=== PATIENT | male | born 1950 | race Caucasian/White ===

== ENCOUNTER 2017-10-25 14:06 | Emergency (ER) | payer OTHER ==
[2017-10-25] MEDS ORDERED: DIPH,PERTUSS(ACELL),TET VAC/PF 0.5 ML DISP.SYRIN IM ONE (14:43)
--- NOTE | 2017-10-25 14:44 | ED Physician Documentation ---
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 Pt does not know how long the tick might have been attached, since he works in the same environment daily. Pt removed the tick. The site is itchy (which is how it came to his attention). Pt has had no symptoms apart for the itchy irritation at the site. Tetanus is not utd.) - ROS CONST: no problems EYES/ENT: none CVS/RESP: none GI/: none MS/SKIN/LYMPH: other (tick bite) - PAST HX Past History: none Allergies/Adverse Reactions: Allergies Allergy/AdvReac Type Severity Reaction Status Date / Time codeine AdvReac Unknown Anaphylaxis Verified 10/25/17 14:22 Penicillins AdvReac Unknown Anaphylaxis Verified 10/25/17 14:22 Home Medications: Ambulatory Orders Medication Instructions Recorded NK [NK] 04/01/15 - SOCIAL HX Smoking History: non-smoker - FAMILY HX Family History: No - VITAL SIGNS Vital Signs: Vital Signs Temp Pulse Resp BP Pulse Ox 78 18 148/81 10/25/17 14:10 10/25/17 14:10 10/25/17 14:10 - REVIEWED ASSESSMENTS Nursing Assessment Reviewed: Yes Vitals Reviewed: Yes Progress - Progress Progress: Tdap 0.5 ml IM Doxycycline 200 mg po x 1 (pt will avoid sun, use sunsceen for the next few days.) f/u prn new sx or rash General Adult Physical Exam - PHYSICAL EXAM GENERAL APPEARANCE: no distress NECK: normal inspection, supple RESPIRATORY: no resp distress, chest non-tender, breath sounds normal CVS: reg rate & rhythm, heart sounds normal BACK: other (lesion on upper back/R shoulder c/w tick bite) SKIN: other (lesion on upper back/R shoulder c/w tick bite) EXTREMITIES: non-tender, normal range of motion, no evidence of injury NEURO: oriented X3, motor nml, sensation nml Discharge Clincal Impression: Tick bite Qualifiers: Encounter type: initial encounter Qualified Code(s): W57.XXXA - Bitten or stung by nonvenomous insect and other nonvenomous arthropods, initial encounter Referrals: Nicky Freeman MD [Primary Care Provider] - Condition: Good Disposition: 01 HOME, SELF-CARE Decision to Admit: NO Decision Time: 15:00
[2017-10-25] MEDS ORDERED: DOXYCYCLINE MONOHYDRATE 100 MG CAPSULE PO ONE ×2 (14:45)
[2017-10-25 14:58] VITALS: BP 138/68
== END 2017-10-25 14:56 | disposition home or self-care (01) ==
LOC: ED 14:06
DX: S20.469A Insect bite (nonvenomous) of unspecified back wall of thorax, initial encounter (principal); Z23 Encounter for immunization; W57.XXXA Bitten or stung by nonvenomous insect and other nonvenomous arthropods, initial encounter; Y93.9 Activity, unspecified; Y92.9 Unspecified place or not applicable; Y99.9 Unspecified external cause status
CPT/HCPCS: 90471; 90715; 99283

== ENCOUNTER 2018-01-10 10:02 | Emergency (ER) | payer OTHER ==
--- NOTE | 2018-01-10 10:16 | ED Physician Documentation ---
Sore Throat/Dental Pain - HISTORIAN Historian: patient - HPI Stated Complaint: dental pain Chief Complaint: Dental Pain Onset: days ago (3) Context: Possible Infection Associated Symptoms: moderate. denies: fever, chills, sore throat, unable to swallow, R ear pain, L ear pain, cough Worsened By: nothing Further Comments: yes (He states he has had some issues in the past with this tooth right upper back is where the pain is. No fever. He has not consulted a dentist. No drainage. He has not tried any OTC meds today. States pain is 5/10. He did drive to the ER today) - ROS CONST: no problems NEURO/PSYCH: denies: headache - PAST HX Past History: none Other History: none Allergies/Adverse Reactions: Allergies Allergy/AdvReac Type Severity Reaction Status Date / Time codeine AdvReac Unknown Anaphylaxis Verified 10/25/17 14:22 Penicillins AdvReac Unknown Anaphylaxis Verified 10/25/17 14:22 Home Medications: Ambulatory Orders Medication Instructions Recorded NK 04/01/15 - SOCIAL HX Smoking History: cigarettes Alcohol Use: none Drug Use: none - FAMILY HX Family History: No - VITAL SIGNS Vital Signs: Vital Signs Temp Pulse Resp BP Pulse Ox 138/68 10/25/17 14:56 - REVIEWED ASSESSMENTS Nursing Assessment Reviewed: Yes Vitals Reviewed: Yes Progress - Progress Progress: 1030: discussed the fact he drove and no need for narcotics. He needs to see a dentist. No obvious infection DG Dental Pain Physical Exam - EXAM General Appearance: no acute distress, alert Head/Neck: head nml inspection, no lymphadenopathy, thyroid nml Eyes: eyes nml inspection, PERRL Mouth/Throat: lips nml, gums nml, pharynx nml, no air way problems. No: dental tenderness, gum swelling around teeth, drooling Ear/Nose: nml inspection Respiratory: no resp. distress, breath sounds nml CVS: reg. rate & rhythm, heart sounds nml Abdomen: soft, normal bowel sounds, no distension Extremities: non-tender Skin: warm/dry, normal color Neuro/Psych: none Discharge Clincal Impression: Pain, dental Referrals: Nicky Freeman MD [Primary Care Provider] - 2 Days Additional Instructions: 1. Ibuprofen 800 mg take 1 by mouth every 12 hours as needed for pain 2. Warm salt water gargles 3. Warm tea bags 4. See your dentist 5. Return to ER for any concerns Condition: Stable Disposition: 01 HOME, SELF-CARE Decision to Admit: NO Date of Decison to Admit: 01/10/18 Decision Time: 10:31
[2018-01-10 10:41] VITALS: BP 120/68
== END 2018-01-10 10:35 | disposition home or self-care (01) ==
LOC: ED 10:02
DX: K08.9 Disorder of teeth and supporting structures, unspecified (principal)